=== PATIENT | male | born 1955 | race Caucasian/White ===

== ENCOUNTER → 2023-05-17 13:01 | Outpatient (BNVA) | payer MEDICARE, SELFPAY | PROVIDERS: PCP Internal Medicine; Referring Provider Internal Medicine; Visit Provider Physical Therapy Assistant | DX: Z12.11 Encounter for screening for malignant neoplasm of colon (principal); K57.90 Diverticulosis of intestine, part unspecified, without perforation or abscess without bleeding; R19.7 Diarrhea, unspecified; Z92.3 Personal history of irradiation ==

== ENCOUNTER 2023-05-22 08:01 | Day surgery (SDC) | payer MEDICARE, SELFPAY ==
--- NOTE | 2023-05-21 13:04 | W.COLOREPORT ---
Date of service: 05/22/23 Time of Service: 09:32 Colonoscopy Report Date of procedure: 05/22/23 Pre-op diagnosis general: crc screening/status post sigmoid resection in 2015 for diverticular diseas Post-op diagnosis procedure note: other (Internal and external hemorrhoids/polyps x2/few residual diverticula) Surgeon: Kelly Sevilla Anesthesia Type: General:No Airway Estimated blood loss (mL): 2 Pathology: other Complications: None Disposition: same day Prep: Miralax/Dulcolax Retraction Time: 10 Procedure Description: After informed consent was obtained the patient was taken to the procedure room and placed in a left decubitous position. Monitors were applied and a time out was done. The patients name, date of , procedure, allergies to medications and metal in their body was reviewed. The patient was then sedated. Once sedated and comfortable a rectal exam was done. External exam shows moderate hemorrhoids with no thrombosis. Internal exam revealed a normal sphincter tone and no palpable masses. The prostate no palpable. Normal in size and texture The scope was then introduced and retrofelexed. Grade 1 internal hemorrhoids were identified. The scope was then advanced to the cecum without difficulty. The TI and appendiceal orifice were identified. The prep was BBPS 3 in all segments for total of 8.5- sigmoid colon has been been resected. The scope was then slowly retracted over 10 minutes back into the rectum. He has x2 polyps. One polyp was at 60 cm, the other polyp was at 20 cm. They are both flat 5 mm polyps. They are removed with cold biting forceps. All specimen is retrieved and no bleeding is noted. He has had a previous sigmoid resection and the anastomosis line is noted at 30 cm PA. the anastomosis is widely patent and there is no bleeding noted or signs of stenosis. There are a few [place] diverticula proximal to the anastomosis. There is some mild hypervascularity noted noted in the posterior rectal wall. There is no edema or erythema. Biopsies are taken in the rectum. All specimen is retrieved and no bleeding is noted. The scope was removed and the patient was woken up and taken back to Same day surgery in stable condition. The patient tolerated the procedure well and there were no immediate complications. Follow up: The patient should follow up in 5-7 years, path pending, unless they develop changes in bowel habits or other new gastrointestinal complaints.
--- NOTE | 2023-05-21 13:06 | PDOC.DSDIS_ITS ---
Date of service: 05/22/23 Time of Service: 09:36 Discharge Plan Disposition Patient Disposition: Home Condition: Good Discharge Details Reason For Visit: Colorectal cancer screening Attending Provider: Kelly Sevilla Primary Care Provider: Maritza Manzano Home Meds and New Rx's Prescriptions: New diphenoxylate-atropine [Lomotil] 2.5-0.025 mg tablet 1 tab PO QID PRN PRNQty: 60 5RF Rx Instructions: 1-2 tabs after a loose BM. Max of 8 per day Continued tamsulosin 0.4 mg capsule 0.4 mg PO DAILY simvastatin 20 mg tablet 20 mg PO DAILY loperamide [Imodium A-D] 2 mg capsule 2 mg PO Q6H PRN enalapril maleate 20 MG tablet 20 mg PO DAILY atenolol 25 MG tablet 25 mg PO DAILY omeprazole 20 MG capsule,delayed release(DR/EC) 40 mg PO DAILY hydrochlorothiazide 25 MG tablet 25 mg PO DAILY Fish Oil 1 EACH capsule 1 ea PO DAILY magnesium amino acid chelate 100 MG tablet 100 mg PO DAILY Red Yeast Rice 1 cap PO DAILY meloxicam 7.5 mg tablet 7.5 mg PO BID loratadine 10 mg capsule 10 mg PO DAILY montelukast 10 mg tablet 10 mg PO DAILY aspirin [Aspir-81] 81 mg tablet,delayed release (DR/EC) 81 mg PO DAILY ibuprofen 600 MG tablet 600 mg PO TID PRN PRNQty: 30 1RF Discontinued bisacodyl [Dulcolax (bisacodyl)] 5 mg tablet,delayed release (DR/EC) 5 mg PO ONCE Qty: 4 0RF Rx Instructions: Take per colonoscopy instructions provided by ordering providers office polyethylene glycol 3350 17 gram/dose powder 17 g PO ONCE Qty: 238 0RF Rx Instructions: Take per colonoscopy instructions provided by ordering providers office Discharge Instructions Additional Instructions: DSU Colonoscopy Post- Op Instructions Instructions for Everyone who is given Anesthesia: For your safety, please do the following for the next twenty-four (24) hours: *Do Not operate a motor vehicle (car, truck, motorcycle, etc.) *Do Not drink alcoholic beverages or use any recreational drugs for the first 24 hours or while taking pain medications. The medications in your body may have a reaction that can be dangerous. *Do Not make any important decisions or sign any important papers. Findings: Hemorrhoids Polyps x2 Follow up: My office will send you a letter in 2 to 3 weeks time with the resu lts of the pathology and when we want you to repeat the colonoscopy. 1. No lifting over 20 pounds or strenuous activity for the first 24 hours after your procedure. After 24 hours there are no restrictions on your activity but you may feel fatigued for a few days. 2. After you arrive home you may have a light meal and return to your normal diet as you can tolerate it without feeling sick to your stomach. 3. You may have a bloated, gaseous feeling in your belly (abdomen) after a colonoscopy. Passing gas and belching will help. Walking or lying down on your left side with your knees flexed may relieve the discomfort. Call the office at [phone] (Office) or [phone] (Hospital) right away if you notice any of the following: a.Vomiting of blood or ?coffee ground stools?. b.Rectal bleeding 1Tbsp, blood clots or continuous bleeding. c.Severe belly (abdominal) pain. d.A hard distended belly (abdomen) and an inability to pass gas. 4. Please don?t expect to have a normal BM (bowel movement) for 2-3 days after your procedure. 5. If there are questions regarding the findings of your procedure, please contact your doctor 6. If you are unable to contact your doctor with a problem, contact the hospital at [phone]. 7. Continue all your regular medications unless directed otherwise. I understand the above instructions and have no questions. Signature of Patient or Adult Escort Name of Responsible Adult Escort Signature of Nurse Date/Time Activity:: See above Diet:: See above Discharge Orders Discharge Orders: Discharge Order (Routine); Ordered 05/22/23 Ordered By: Kelly Sevilla DS: Diagnosis Discharge Diagnosis (1) Diverticulosis: Status: Acute (2) External hemorrhoids without complication: Status: Acute (3) Adenomatous polyps: Status: Acute (4) History of radiation therapy: Status: Acute
[2023-05-22 08:12] VITALS: BP 168/98; PULSE 80; RESP 17; TEMP 36.5; O2SAT 95
[2023-05-22] MEDS: Lactated Ringers 1,000 ML 80 ML IV (08:30)
[2023-05-22 09:01] VITALS: BMI 27.8
--- NOTE | 2023-05-22 09:01 | W.ANESPRE ---
General Info Date of Service Date Performed: 05/22/23 Height: 5 ft 10 in Weight: 87.9 kg Body Mass Index (BMI): 27.8 Surgical Procedure: Operation Date: 05/22/23 09:05 Proposed Procedure Side Surgeon esteban Sevilla, DO Meds Allergies and Home Medications Allergies Allergy/AdvReac Type Severity Reaction Status Date / Time No Known Allergies Allergy Verified 05/22/23 08:20 Home Medication Medication Instructions Recorded Fish Oil 340 mg-1,000 mg capsule 1 ea PO DAILY 03/31/14 (omega-3 fatty acids-fish oil) atenolol 25 mg tablet 25 mg PO DAILY 03/31/14 enalapril maleate 20 mg tablet 20 mg PO DAILY 03/31/14 hydrochlorothiazide 25 mg tablet 25 mg PO DAILY 03/31/14 magnesium amino acid chelate 100 100 mg PO DAILY 03/31/14 mg tablet omeprazole 20 mg capsule,delayed 40 mg PO DAILY 03/31/14 release Red Yeast Rice 1 cap PO DAILY 08/27/14 ibuprofen 600 mg tablet 600 mg PO TID PRN PRN #30 tabs 09/18/14 loratadine 10 mg capsule 10 mg PO DAILY 05/15/23 meloxicam 7.5 mg tablet 7.5 mg PO BID 05/15/23 montelukast 10 mg tablet 10 mg PO DAILY 05/15/23 Aspir-81 81 mg tablet,delayed 81 mg PO DAILY 05/17/23 release (aspirin) loperamide 2 mg capsule (Imodium 2 mg PO Q6H PRN 05/17/23 A-D) simvastatin 20 mg tablet 20 mg PO DAILY 05/17/23 tamsulosin 0.4 mg capsule 0.4 mg PO DAILY 05/17/23 Current Visit Medications: Current Medications Generic Name Dose Route Start Last Admin Trade Name Freq PRN Reason Stop Dose Admin Ringer's Solution 1,000 mls @ 80 mls/hr 05/22/23 06:00 05/22/23 08:30 IV 06/20/23 23:59 80 mls/hr INFUSION BERTHA Administration IV Miscellaneous Supplies 1 each 05/22/23 06:00 Iv Access IV 06/20/23 23:59 DIRECTED BERTHA Ondansetron HCl 4 mg 05/22/23 10:53 Ondansetron 4 Mg/2 Ml Vial IVP 06/21/23 10:52 Q4H PRN PRN Nausea / Vomiting Sodium Chloride 0 ml 05/22/23 06:00 Normal Saline Flush 10 Ml Syr IV 06/20/23 23:59 PRN PRN Sodium Chloride 0 ml 05/22/23 06:00 Normal Saline 10 Ml Vial IJ 06/20/23 23:59 DIRECTED PRN Sterile Water 0 ml 05/22/23 06:00 Water,Injection,Sterile 10 Ml Vial IJ 06/20/23 23:59 DIRECTED PRN PFSH Active Problems Active Problems: Problem Status Onset Code Diverticulitis 09/16/14 K57.92 Elevated PSA R97.2 Hyperlipidemia E78.5 Hypertension I10 Malignant neoplasm of prostate C61 Anxiety F41.9 Medical History Medical History diverticulitis GERD (gastroesophageal reflux disease) Hyperlipidemia hypertension PSA elevation Surgical History Surgical History Colonoscopy - IV Sedation History of colon resection 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 Tobacco Smoking/Tobacco Use Status: Former Tobacco Use Alcohol Alcohol Intake: current Alcohol intake frequency: 3 or more drinks per day Alcohol type: hard liquor Details: 4-5 vodka drinks/day Substance Use Substance use: Daily Substance use type: marijuana Details: marijuana tincture, last time - few days ago Vital Signs and Lab Results Vital Signs Most Recent Vital Signs in EMR: Most Recent Vital Signs Temp Pulse Resp BP Pulse Ox 36.5 C 80 17 168/98 H 95 05/22/23 08:12 05/22/23 08:12 05/22/23 08:12 05/22/23 08:12 05/22/23 08:12 Lab Results Blood Type / Crossmatch: No Data to Display Complete Blood Count: No Data to Display Complete Metabolic Panel: No Data to Display Liver Function Panel: No Data to Display Coagulation Panel: No Data to Display Cardiac Panel: No Data to Display Arterial Blood Gas: No Data to Display Venous Blood Gas: No Data to Display Pancreas Panel: No Data to Display Thyroid Panel: No Data to Display Infectious Disease: No Data to Display Blood Cultures: No Data to Display Toxicology Panel: No Data to Display Anesthesia Assessment and Plan Anesthesia History Personal History: No History of Anesthesia Complications Family History: No Family History of Anesthesia Complications Exercise Tolerance Exercise Tolerance: Metabolic Equivalents>4 Pertinent Negatives Pertinent Negatives: No Symptoms of GERD Cardiac & Pulmonary Exam Cardiac Exam: Normal S1/S2 Heart Sounds Pulmonary Exam: Clear Bilateral Breath Sounds Implantable Cardiac Device Does patient have a Pacemaker or an ICD?: No Airway Exam Known Difficult Airway: No Mallampati Class: 2 Mouth Opening: Normal (> 3cm) Thyromental Distance: Greater than 3 cm Neck Range of Motion: Full ROM Neck Circumference: Normal Teeth Condition: Normal Dentition ASA Classification ASA Score: ASA 2 Emergency Case?: No NPO Status NPO Status: NPO Clears >2 hours, Solids >8 hours Anesthesia Plan Resuscitation Status: Full Code Anesthesia Technique: General Anesthesia Airway Planned: Natural Airway Monitors Used: Standard Monitors
--- NOTE | 2023-05-22 09:22 | BOWEL_PTH ---
PATIENT: Sloan Pink LOC: [facility] U#:[id number] AGE/SX: 67/M ROOM: RE05/22/[address]: Kelly Sevilla : 1955 BED: DIS: 05/22/2023 SPEC #: [id number] RECD: 05/22/23 14:55 STATUS: MARIANN REQ #: [id number] SATYA: 05/22/23 09:[address]: Kelly Sevilla DEPT: Surgical Specimen RECD BY: Dixie Lam ENTERED: 05/22/23 14:56 SP TYPE: Bowel OTHR DR: Maritza Manzano Tissues: 1 - BIOPSY BOWEL 2 - BIOPSY BOWEL 3 - BIOPSY BOWEL Procedures: GROSS AND MICRO LEVEL 4 Comments: [id number]
[2023-05-22 09:33] VITALS: BP 133/86; PULSE 63; RESP 16; TEMP 36.7; O2SAT 97
--- NOTE | 2023-05-22 09:36 | W.ANESPOSTOP ---
Postoperative Evaluation Date, Time and Location Date Performed: 05/22/23 Time Performed: 09:36 Patient Location: Day Surgery Unit Vital Signs Most Recent Imported Vital Signs: Most Recent Vital Signs Temp Pulse Resp BP Pulse Ox 36.5 C 80 17 168/98 H 95 05/22/23 08:12 05/22/23 08:12 05/22/23 08:12 05/22/23 08:12 05/22/23 08:12 Pain Score Most Recent Pain Score: Most Recent Pain Score Pain Level 0 05/22/23 08:12 Assessment Mental Status: Awake (Alert & Oriented to Patient Baseline) Airway and Respiratory Function: Patent airway with normal (patient baseline) respiratory exam Cardiovascular Function: Hemodynamically Stable Hydration Status: Adequately Hydrated Nausea & Vomiting: No Nausea or Vomiting Pain: Pt. Denies Any Pain Peripheral Nerve Block: Patient did not receive a nerve block
[2023-05-22 10:04] VITALS: BP 135/94; PULSE 62; RESP 18; TEMP 37; O2SAT 97
== END 2023-05-22 10:40 | disposition home or self-care (01) ==
PROVIDERS: PCP Internal Medicine; Visit Provider Surgery
PROC: 0DJD8ZZ Inspection of Lower Intestinal Tract, Via Natural or Artificial Opening Endoscopic (ICD-10-PCS; CPT 45378; principal; 2023-05-22 09:00)
DX: Z12.11 Encounter for screening for malignant neoplasm of colon (principal); D12.5 Benign neoplasm of sigmoid colon; K57.30 Diverticulosis of large intestine without perforation or abscess without bleeding; K64.0 First degree hemorrhoids; K64.4 Residual hemorrhoidal skin tags; K62.89 Other specified diseases of anus and rectum; Z92.3 Personal history of irradiation; Z85.820 Personal history of malignant melanoma of skin; Z90.49 Acquired absence of other specified parts of digestive tract; Z98.0 Intestinal bypass and anastomosis status; D12.4 Benign neoplasm of descending colon
CPT/HCPCS: 45380; 88305